=== PATIENT | male | born 1950 | race Caucasian/White ===

== ENCOUNTER 2025-05-01 10:49 | Emergency (ER) | payer MEDICARE, SELFPAY ==
[2025-05-01 10:52] VITALS: BP 127/88; PULSE 87; RESP 16; TEMP 36.6; O2SAT 96; BMI 28.5
--- NOTE | 2025-05-01 11:30 | PC.NURSE ---
Bladder scan completed after pt voided. 4 mL or less noted on scan. MD notified. Sent urine for micro
[2025-05-01 13:40] LABS: Bilirubin Urine UA 2+ (NEGATIVE); Color Urine UA YELLOW; Glucose Urine UA NEGATIVE (Negative); Ketones Urine UA 1+ (NEGATIVE); Leukocyte Esterase Urine UA 2+ (NEGATIVE); Nitrite Urine UA POSITIVE (Negative); Occult Blood Urine UA 3+ (Negative); Protein Urine UA 2+ (Negative); Specific Gravity Urine UA >=1.030 (1.000-1.035); Urobilinogen Urine UA 2.0 E.U./dL (0.2); pH Urine UA 5.5 (4.5-8.0)
[2025-05-01 13:41] LABS: Appearance Urine UA Cloudy
[2025-05-01 13:42] LABS: Culture Indicated Urine Specimen Cultured
[2025-05-01 13:44] LABS: Ictotest Urine Negative (Negative)
--- NOTE | 2025-05-01 14:50 | ED.MALEGU ---
HPI - Male Genitourinary General Chief complaint: Urogenital-Male Stated complaint: having a hard time urinating 1 day Time Seen by Provider: 05/01/25 12:50 Source: patient, RN notes reviewed and old records reviewed Mode of arrival: Family Vehicle Limitations: no limitations History of Present Illness HPI Narrative: 74-year-old male history of Parkinson's, hypertension who presents with complaint of dysuria, urgency and frequency and a sense of incomplete emptying. No fevers. No mental status changes. No chest pain or shortness of breath. Patient had some nausea last night. No abdominal pain, noticed a little bit of lower back discomfort. No issues with bowel movements no painful bowel movements. No diarrhea or constipation. Patient has not had prior UTIs in the past. Does take medication for hypertension as well as Parkinson's. No anticoagulants. Notes an allergy to penicillin. No regular tobacco, alcohol or recreational drugs. He is accompanied by family. Related Data Previous Rx's ?Medication ?Instructions ?Recorded nitrofurantoin 100 mg PO Q12H 7 days #14 caps 05/01/25 monohydrate/macrocrystals 100 mg capsule (Macrobid) Allergies Allergy/AdvReac Type Severity Reaction Status Date / Time Penicillins AdvReac Nausea Verified 05/01/25 10:55 Review of Systems Review of Systems ROS Unobtainable: All systems reviewed & are unremarkable except as noted in HPI and below Patient History Social History Smoking Status: Never smoker Smoking Status: Never smoker Alcohol type: beer Exam Narrative Exam Narrative: GENERAL: Alert and oriented x three, male in mild distress HEENT: Head normocephalic, atraumatic, EOMI, pupils reactive, face symmetric, moist mucous membranes NECK: Supple, full range of motion CARDIOVASCULAR: Regular rate and rhythm without murmurs, rubs or gallops. RESPIRATORY: Breath sounds equal bilaterally, no wheezes rales or rhonchi. ABDOMEN: Soft, nontender. Normoactive bowel sounds all 4 quadrants. No guarding or rebound, rigidity, no mass : No CVA tenderness EXTREMITIES: Normal range of motion, no clubbing or edema. Neurovascularly intact NEUROLOGICAL: Cranial nerves II through XII grossly intact. Moving all extremities, mild pill-rolling tremor noted on exam. SKIN: Warm, dry, no petechiae, no rashes or lesions. Initial Vital Signs Initial Vital Signs: Vital Signs Temperature 97.8 F 05/01/25 10:52 Pulse Rate 87 05/01/25 10:52 Respiratory Rate 16 05/01/25 10:52 Blood Pressure 127/88 05/01/25 10:52 Pulse Oximetry 96 05/01/25 10:52 Oxygen Delivery Method Room Air 05/01/25 10:52 Course Orders Ordered: ED Orders 05/01/25 11:20 Ictotest Urine Stat Urinalysis and Microscopic Stat Urine Culture Stat Discontinued Medications Nitrofurantoin Macrocrystals (Nitrofurantoin Er 100 Mg Capsule) 100 mg PO NOW ONE Stop: 05/01/25 14:57 Last Admin: 05/01/25 15:08 Dose: 100 mg Documented By: Vital Signs Vital signs: Vital Signs - 8 hr 05/01/25 15:13 Temperature 99 F Pulse Rate 84 Respiratory Rate 19 Blood Pressure 110/83 Pulse Oximetry 98 Oxygen Delivery Method Room Air MDM - Male Genitourinary Lab Data Labs: Lab Results 05/01/25 05/01/25 05/01/25 Range/Units 11:20 11:20 11:20 Urine Color Yellow Urine Appearance Cloudy Urine pH 5.5 (4.5-8.0) Ur Specific [place] >=1.030 H (1.000-1.035) Urine Protein 2+ H (Negative) Urine Glucose (UA) Negative (Negative) g/dL Urine Ketones 1+ H (NEGATIVE) Urine Occult Blood 3+ H (Negative) Urine Nitrate Positive H (Negative) Urine Bilirubin 2+ H (NEGATIVE) Ur Bilirubin Confirm Negative (Negative) Urine Urobilinogen 2.0 H (0.2) E.U./dL Ur Leukocyte Esterase 2+ H (NEGATIVE) Urine RBC Cancelled 10-30/hpf H Urine WBC Cancelled 10-30/hpf H Ur Squamous Epith Cells Cancelled Ur Transition Epith Cell Ur Renal Epithelial Cell Calcium Oxalate Crystal Uric Acid Crystals Triple Phos Crystals Other Crystals Amorphous Sediment Urine Bacteria Hyaline Casts Granular Casts RBC Casts WBC Casts Other Casts Urine Mucus Urine Trichomonas Urine Yeast Urine Sperm Ur Culture Indicated? Micro UA Comment Vol Urine Centrifuged 05/01/25 05/01/25 05/01/25 Range/Units 11:20 11:20 11:20 Urine Color Urine Appearance Urine pH (4.5-8.0) Ur Specific [place] (1.000-1.035) Urine Protein (Negative) Urine Glucose (UA) (Negative) g/dL Urine Ketones (NEGATIVE) Urine Occult Blood (Negative) Urine Nitrate (Negative) Urine Bilirubin (NEGATIVE) Ur Bilirubin Confirm (Negative) Urine Urobilinogen (0.2) E.U./dL Ur Leukocyte Esterase (NEGATIVE) Urine RBC Urine WBC Ur Squamous Epith Cells 1-5 /hpf Ur Transition Epith Cell Cancelled Ur Renal Epithelial Cell Cancelled 1-5/hpf H Calcium Oxalate Crystal Cancelled Uric Acid Crystals Cancelled Triple Phos Crystals Cancelled Other Crystals Cancelled Amorphous Sediment Cancelled 2+ Urine Bacteria Cancelled Hyaline Casts Granular Casts RBC Casts WBC Casts Other Casts Urine Mucus Urine Trichomonas Urine Yeast Urine Sperm Ur Culture Indicated? Micro UA Comment Vol Urine Centrifuged 05/01/25 05/01/25 05/01/25 Range/Units 11:20 11:20 11:20 Urine Color Urine Appearance Urine pH (4.5-8.0) Ur Specific [place] (1.000-1.035) Urine Protein (Negative) Urine Glucose (UA) (Negative) g/dL Urine Ketones (NEGATIVE) Urine Occult Blood (Negative) Urine Nitrate (Negative) Urine Bilirubin (NEGATIVE) Ur Bilirubin Confirm (Negative) Urine Urobilinogen (0.2) E.U./dL Ur Leukocyte Esterase (NEGATIVE) Urine RBC Urine WBC Ur Squamous Epith Cells Ur Transition Epith Cell Ur Renal Epithelial Cell Calcium Oxalate Crystal Uric Acid Crystals Triple Phos Crystals Other Crystals Amorphous Sediment Urine Bacteria Many (>30) H Hyaline Casts Cancelled Granular Casts Cancelled RBC Casts Cancelled WBC Casts Cancelled Other Casts Cancelled Urine Mucus Cancelled Urine Trichomonas Cancelled Urine Yeast Cancelled Urine Sperm Cancelled Ur Culture Indicated? Cancelled Specimen cultured Micro UA Comment Cancelled Vol Urine Centrifuged Cancelled 1 MDM Narrative Medical decision making narrative: UA shows 2+ protein 1+ ketones 3+ blood, positive nitrates positive for bilirubin positive for leuks 10-30 RBCs 10-30 WBCs 1-5 renal epithelials many bacteria. Patient had postvoid residual that showed less than 10 mL. Vitals are appropriate no signs of sepsis. Plan to start oral antibiotic for UTI with return precautions. Discussed return precautions all questions answered. Discharge Plan Departure Patient Disposition: Home Clinical Impression: Urinary tract infection Instructions: DI for Urinary Tract Infection (UTI) Activity Restrictions/Additional Instructions: Follow up for rechecked. Your urine today does show changes consistent with infection. Take antibiotics until completed. [facility] [place]. Please return for fevers, new abdominal back or flank pain, persistent vomiting, inability to urinate, black or bloody stools or other new or concerning changes Prescriptions: New nitrofurantoin monohyd/m-cryst [Macrobid] 100 mg capsule 100 mg PO Q12H 7 Days Qty: 14 0RF Rx Instructions: must administer with a meal/food Referrals: Radha Fernandes ARNP [Primary Care Provider, Nursing] Stand Alone Forms: Patient Portal/API
--- NOTE | 2025-05-01 14:52 | PC.NURSE ---
Pt continues to have frequent urination.
[2025-05-01] MEDS: NITROFURANTOIN ER 100 MG CAPSULE PO (15:08)
[2025-05-01 15:13] VITALS: BP 110/83; PULSE 84; RESP 19; TEMP 37.2; O2SAT 98
== END 2025-05-01 15:14 | disposition home or self-care (01) ==
PROVIDERS: Emergency Provider Emergency Medicine; PCP Nurse Practitioner Family
DX: N39.0 Urinary tract infection, site not specified (principal)
CPT/HCPCS: 51798; 81001; 87077; 87086; 87186; 99283

== ENCOUNTER → 2025-08-02 13:48 | Outpatient (CLI) | payer MEDICARE, SELFPAY | PROVIDERS: PCP Nurse Practitioner Family; Visit Provider Urology | DX: R39.9 Unspecified symptoms and signs involving the genitourinary system (principal) | CPT/HCPCS: 87077; 87086 ==